=== PATIENT | female | born 1995 | race Caucasian/White ===

== ENCOUNTER 2016-12-05 15:24 | Emergency (ER) | payer OTHER ==
[~2016-12-05] VITALS: Ht 170.2 cm; Wt 83.5 kg
[~2016-12-05 15:24] MED LIST: LOESTRIN 21 1.51 TAB PO; [UNRECOGNIZED DRUG - OTHER] PO
[2016-12-05 15:36] VITALS: BP 123/68
== END 2016-12-05 17:30 | disposition home or self-care (01) ==
LOC: ED 15:24
DX: R07.89 Other chest pain (principal); Z86.79 Personal history of other diseases of the circulatory system
CPT/HCPCS: J1885

== ENCOUNTER 2017-03-06 15:57 | Emergency (ER) | payer SELFPAY ==
[~2017-03-06] VITALS: Ht 162.6 cm; Wt 83.9 kg
[2017-03-06 18:13] LABS: microscopic required? YES; urine erythrocyte 2+ (NEGATIVE)
[2017-03-06 18:37] LABS: BASOPHIL % 0.4 % (0-2); PLATELET COUNT 266 x10^3mcL (130-400)
[2017-03-06 18:40] LABS: RED CELL DISTRIBUTION WIDTH 16.3 % (11.5-14.5)
[2017-03-06 21:16] VITALS: BP 120/65
== END 2017-03-06 21:16 | disposition home or self-care (01) ==
LOC: ED 15:57
PROVIDERS: Emergency Medicine Emergency Medical Services
DX: N93.9 Abnormal uterine and vaginal bleeding, unspecified (principal); N83.9 Noninflammatory disorder of ovary, fallopian tube and broad ligament, unspecified
CPT/HCPCS: 36415; Q0092

== ENCOUNTER 2017-11-04 10:41 | Emergency (ER) | payer OTHER ==
[~2017-11-04] VITALS: Ht 167.6 cm; Wt 83.9 kg
[2017-11-04 10:44] VITALS: Ht 167.6 cm; Wt 83.9 kg
[2017-11-04 12:26] VITALS: BP 105/65
== END 2017-11-04 12:26 | disposition home or self-care (01) ==
LOC: ED 10:41
DX: S39.012A Strain of muscle, fascia and tendon of lower back, initial encounter (principal); X58.XXXA Exposure to other specified factors, initial encounter; Y93.89 Activity, other specified; Y92.89 Other specified places as the place of occurrence of the external cause; Y99.8 Other external cause status
CPT/HCPCS: J1885

== ENCOUNTER 2018-12-15 17:59 | Emergency (ER) | payer OTHER ==
[~2018-12-15] VITALS: Ht 167.6 cm; Wt 79.8 kg
[2018-12-15 18:03] VITALS: BP 116/62; Ht 167.6 cm; Wt 79.8 kg
== END 2018-12-15 22:05 | disposition left against medical advice (07) ==
LOC: ED 17:59
DX: Z53.21 Procedure and treatment not carried out due to patient leaving prior to being seen by health care provider (principal)

== ENCOUNTER 2020-02-18 15:29 | Emergency (ER) | payer OTHER ==
[~2020-02-18] VITALS: Ht 167.6 cm; Wt 70.8 kg
[2020-02-18 15:35] VITALS: Ht 167.6 cm; Wt 70.8 kg
[2020-02-18 16:17] LABS: microscopic required? NO
[2020-02-18 16:23] LABS: urine erythrocyte NEGATIVE (NEGATIVE)
[2020-02-18 16:27] LABS: BASOPHIL % 0.7 % (0-2); PLATELET COUNT 213 x10^3mcL (130-400)
[2020-02-18 16:28] LABS: RED CELL DISTRIBUTION WIDTH 16.9 % (11.5-14.5)
[2020-02-18 16:32] LABS: CALCIUM 9.1 mg/dL (8.5-10.1); CARBON DIOXIDE 28.8 mmol/L (21-32); CHLORIDE SERUM 107 mmol/L (98-107); CREATININE SERUM 0.8 mg/dL (0.6-1.0); GFR1 > 60 mL/min; GLUCOSE SERUM 88 mg/dL (74-106); POTASSIUM SERUM 3.7 mmol/L (3.5-5.1); SODIUM SERUM 141 mmol/L (136-145)
[2020-02-18 16:32] LABS: AMPHETAMINE QUAL UR NONE DETECTED (See below)
[2020-02-18 16:37] LABS: ALBUMIN 3.8 g/dL (3.4-5.0); ALKALINE PHOSPHATASE 41 U/L (46-116); ALT/SGPT 27 U/L (14-59); AST/SGOT 12 U/L (15-37); BILIRUBIN TOTAL 0.7 mg/dL (0.20-1.00); CHOLESTEROL 155 mg/dL (<200); LIPASE 113 IU/L (73-393); TOTAL PROTEIN, SERUM 7.1 g/dL (6.4-8.2)
[2020-02-18 16:39] LABS: HDL CHOLESTEROL 74 mg/dL (40-60)
[2020-02-18 18:52] VITALS: BP 110/67
== END 2020-02-18 18:53 | disposition home or self-care (01) ==
LOC: ED 15:29
PROVIDERS: Emergency Medicine
DX: F32.9 Major depressive disorder, single episode, unspecified (principal); R07.89 Other chest pain; R53.1 Weakness; Z86.2 Personal history of diseases of the blood and blood-forming organs and certain disorders involving the immune mechanism
CPT/HCPCS: 83880; G0480; Q0092